=== PATIENT | male | born 2000 | race Caucasian/White ===

== ENCOUNTER 2020-07-25 10:44 | Emergency (ER) | payer OTHER ==
[~2020-07-25] VITALS: Ht 188 cm; Wt 93.4 kg
[2020-07-25] MEDS ORDERED: KETO10TA2 PO (15:22)
[2020-07-25] MEDS ORDERED: NORFLEX100MG PO (15:22)
== END 2020-07-25 15:33 | disposition home or self-care (01) ==
LOC: ER 10:44
DX: G89.11 Acute pain due to trauma (principal); M25.511 Pain in right shoulder